=== PATIENT | male | born 1955 | race Caucasian/White ===

== ENCOUNTER → 2016-12-04 | Outpatient (CLI) | payer BC | LOC: HEART 5 10:00 | DX: R00.2 Palpitations (principal); I10 Essential (primary) hypertension; R55 Syncope and collapse; I51.7 Cardiomegaly ==

== ENCOUNTER → 2016-12-22 | Outpatient (CLI) | payer BC | LOC: HEART 5 08:45 | DX: R55 Syncope and collapse (principal); R00.2 Palpitations | CPT/HCPCS: 78452; A9502; J2785 ==

== ENCOUNTER → 2020-11-22 | Outpatient (CLI) | payer MEDICARE, BC ==
[~2020-11-22] MED LIST: ALLERGY RELIEF25 MG PO; AUGMENTIN 875-1 EACH PO; BACTROBAN OINT22 GM EXT; CENTRUM SILVER1 EAC1 PO; ECHINACEA500 MG PO; ELIQUIS 2.5 MG2.5 MG PO; FLUZONE QU60 MCG/018 IM; HYDROCHLOROTHIA25 MG PO; IRON325 M1 PO; LIPITOR TAB 1010 MG PO; LISINOPRIL40 MG PO; MUCINEX1200 MG PO; OSTEO BI-FLEX1 EAC1 PO; PERCOCET 10-321 EACH PO; STOOL SOFTENER1 EACH PO
== END ==
LOC: HEART 5 15:30
DX: I47.2 Ventricular tachycardia (principal); I51.7 Cardiomegaly
CPT/HCPCS: 93306

== ENCOUNTER 2021-05-31 18:04 | Emergency (ER) | payer MEDICARE, BC ==
[~2021-05-31] VITALS: Ht 190.5 cm; Wt 131.5 kg
== END 2021-05-31 20:45 | disposition home or self-care (01) ==
LOC: ER1 18:04
DX: U07.1 COVID-19 (principal); Z23 Encounter for immunization; Z90.89 Acquired absence of other organs; Z79.899 Other long term (current) drug therapy
CPT/HCPCS: 99283; M0243

== ENCOUNTER 2021-09-30 20:55 | Emergency (ER) | payer MEDICARE, BC ==
[2021-09-30 21:36] LABS: HEMOGLOBIN 14.2 gm/dl (14.0-17.5); RED BLOOD COUNT 4.49 M/UL (4.20-5.50); WHITE BLOOD COUNT 10.7 K/UL (4.5-11.0)
[2021-10-01] MEDS ORDERED: PREDNISONE 20 M20 MG GT (04:29)
[2021-10-01] MEDS ORDERED: LASIX 40 MG TAB40 MG PO (04:29)
[2021-10-01] MEDS ORDERED: K-TAB ER10 MEQ PO (04:29)
[2021-10-01] MEDS ORDERED: PERCOCET 5/325 T1 EA PO (04:29)
== END 2021-10-01 05:14 | disposition home or self-care (01) ==
LOC: ER1 20:55
PROVIDERS: Family Medicine
DX: I72.8 Aneurysm of other specified arteries (principal); M10.9 Gout, unspecified; R60.0 Localized edema; M79.673 Pain in unspecified foot
CPT/HCPCS: 71046; 73610; 73630; 75635; 80053; 83880; 85025; 85379; 85652; 86140; 93005; 96374; 96375; 99284; J2060; J2270; J2405; J2930; Q9967

== ENCOUNTER 2022-05-18 09:14 | Emergency (ER) | payer MEDICARE, BC ==
[~2022-05-18 09:14] MED LIST changes: +K-TAB ER10 MEQ PO; +LASIX 40 MG TAB40 MG PO; +PERCOCET 5/325 T1 EA PO; +PREDNISONE 20 M20 MG GT
[2022-05-18] MEDS ORDERED: MEDROL DOSEPAK 24 MG PO (11:28)
== END 2022-05-18 12:02 | disposition home or self-care (01) ==
LOC: ER1 09:14
DX: M10.9 Gout, unspecified (principal); I11.9 Hypertensive heart disease without heart failure
CPT/HCPCS: 73630; 96372; 99283; J2930